=== PATIENT | male | born 1960 ===

== ENCOUNTER 2022-07-25 16:10 | Emergency (ER) | payer OTHER ==
[~2022-07-25] VITALS: Ht 175.3 cm; Wt 87.5 kg
[~2022-07-25 16:10] MED LIST: HYZAAR 50-12.1 UDTAB; LOPRESSOR25 MG; NORVASC5 MG
[2022-07-25] MEDS ORDERED: LOSARTAN-HCTZ1 EAC1 PO (16:50)
== END 2022-07-25 20:20 | disposition home or self-care (01) ==
LOC: ER 16:10
DX: S89.91XA Unspecified injury of right lower leg, initial encounter (principal); W19.XXXA Unspecified fall, initial encounter; Y93.9 Activity, unspecified; Y92.89 Other specified places as the place of occurrence of the external cause; Y99.9 Unspecified external cause status; Z88.2 Allergy status to sulfonamides; I10 Essential (primary) hypertension; M25.561 Pain in right knee

== ENCOUNTER 2022-09-15 17:27 | Emergency (ER) | payer OTHER ==
[~2022-09-15] VITALS: Ht 175.3 cm; Wt 90.7 kg
[~2022-09-15 17:27] MED LIST changes: +LOSARTAN-HCTZ1 EAC1 PO
== END 2022-09-15 20:40 | disposition home or self-care (01) ==
LOC: ER 17:27
DX: R53.81 Other malaise (principal); M94.0 Chondrocostal junction syndrome [Tietze]; I10 Essential (primary) hypertension; Z88.2 Allergy status to sulfonamides